=== PATIENT | female | born 1950 | race African-American/Black ===

== ENCOUNTER → 2020-04-29 | Day surgery (SDC) | payer OTHER ==
--- OUTSIDE RECORDS SUMMARY | 2020-04-29 10:15 | XMS REPORT | Summary of Care ---
:1950 Author Organization [facility] [place] Address [address] [place] [address]- phone Encounter HQ Encntr_alias(FIN) [id number] Date(s): 01/30/20 - 01/30/20 [facility] [address] [place] [address]- [phone] Attending Physician: Won Maciel MD Referring Physician: Won Maciel MD Vital Signs No data available for this section Problem List Condition Effective Dates Status Health Status Informant Headache(Confirmed) Active Rheumatoid arthritis(Confirmed) Active Tinnitus(Confirmed) Active Allergies, Adverse Reactions, Alerts No Known Medication Allergies Medications No data available for this section Results No data available for this section Immunizations No data available for this section Procedures No data available for this section Social History Social History Type Response Smoking Status Current every day smoker; Ty pe: Cigarettes; Exposure to Tobacco Smoke Unable to obtain; Cigarette Smoking Last 365 Days Yes; Reg Smoking Cessation Counseling No entered on: 12/19/19 Assessment and Plan No data available for this section
--- OUTSIDE RECORDS SUMMARY | 2020-04-29 10:15 | XMS REPORT | Continuity of Care Document ---
:1950 Author Organization [employer] [facility] Care Team Providers Name Role Phone [employer] [facility] Unavailable Un available Problems Problem Status Onset Classification Date Comments Sourc e Date Reported HEADACHE Active [address] TEMPORAL Active [address] Z78.0 - Active [facility] ASYMPTOMATIC 5 Sugar L and MENOPAUSAL STATE Headache Active Problem 02/01/2020 [facility] (finding) Neuro Rheumatoid Active Problem 02/01/2020 [facility] arthritis Neuro (disorder) Tinnitus Active Problem 02/01/2020 [facility] (finding) Neuro OTHER GIANT CELL Active [facility] Medications Medication Details Route Status Patient Ordering Order Source Instructions Provider Date 0.8 ML 50 mg = 1 ml, Active [facility] adalimumab 50 SUB-Q, Q14D, 020 Neuro MG/ML # 1 kit, 0 Auto-Injector Refill(s) [Humira] lisinopril 20 20 mg = 1 Active [facility] mg oral tablet tab, PO, 019 Medical Daily, # 30 Center tab, 3 Refill(s) Lisinopril Notes: (Same [place]: Prinivil, 019 Medical Zestril) [place] 0.8 ML 40 mg = 0.8 Active [facility] adalimumab 50 ml, SUB-Q, 019 Medical MG/ML Prefilled Q14D, # 1 Center Syringe kit, 0 [Humira] Refill(s) Folic Acid 1 MG 1 mg = 1 tab, Active [place] Oral Tablet PO, Daily, 0 019 Medical Refill(s) [place] gabapentin 100 200 mg = 2 Active [facility] as MG Oral Capsule cap, PO, TID, 019 Me dical 0 Refill(s) [place] methotrexate 12.5 mg = 5 [place] 2.5 mg oral tab, PO, 019 Medical tablet qWeek, ON Center MONDAY, 0 Refill(s) Magnesium Notes: [place]: [place] Sulfate F/P - Sink; E [address] [place] [address] Trash Bin Magnesium Notes: [place]: [place] Sulfate F/P - Sink; E [address] [place] [address] Trash Bin Saline Flush Notes: (Same No Longer [place] 0.9% as: BD Active 019 Medical Posiflush) Center Lisinopril Notes: (Same No Longer [place] as: Prinivil, Active [address] [place] [address] Zestril) Center Docusate Sodium Notes: (Same No Longer [facility] [place] 50 MG / as Senokot-S) Active [address] [place] [address] sennosides, SHELTER Equiv. to Cente r 8.6 MG Oral Galilea-Colace. Tablet Famotidine Notes: (Same No Longer [place] as: Pepcid) Active [address] [place] [address] chlorhexidine Notes: (Same No Longer [facility] gluconate 1.2 As: Peridex) Active [facility] Medic al MG/ML Mouthwash Center Saline Flush Notes: (Same No Longer [place] 0.9% as: BD Active 019 Medical Posiflush) Center Hydralazine Notes: (Same [place] Long[place] as: Active 019 [facility] Apresoline) Center Push over 5 minutes Saline Flush Notes: (Same No Longer [place] 0.9% as: BD Active 019 Medical Posiflush) Center heparin Notes: No Longer [facility] porcine Active [address] [place] [address] heparin Center Insulin regular Notes: (Same No Longer [facility] [place] as: Humulin Active 019 Medical R) Roll in Center palms of hands gently; Do not shake vigorously. WASTE: F/P - Black; E - Municipal Trash Bin Stable for 31 days at room temperature Expires in days from _Date Saline Flush Notes: (Same No Longer [place] 0.9% as: BD Active 019 Medical Posiflush) Center PHOS-NaK Notes: (Same No Longer [facility] as: Phos-NaK) Active 019 Medical Each 1.5 gm Center pkt has 250mg phosphorous. Mix w/2.5oz water and stir. Proparacaine 1 drp, Route: Inactive [place] hydrochloride 5 RIGHT EYE, 019 Medic al MG/ML ONCE, Drug Center Ophthalmic form: SOLN, Solution Priority: STAT, Start date: 09/11/18 16:09:00 CDT, Stop date: 09/11/18 16:09:00 CDT fluorescein 1 mL, Route: Inactive [place] ophthalmic 1 mg OPTH, ONCE, 019 Medi prasad test Start date: Center 09/11/18 16:09:00 CDT, Stop date: 09/11/18 16:09:00 CDT Allergies, Adverse Reactions, Alerts Substance Category Reaction Severity Reaction Status Date Comments S ource type Reported No Known Assertion Drug Misch er Medication allergy Neuro Allergies Immunizations No Data Provided for This Section Results Order Name Results Value Reference Date Interpretation Comments Maria Del Rosario rce Range CHEM PANEL Phosphorus 2.6 2.5 - 4.5 09/13 [facility] CHEM PANEL Magnesium Lvl 2.4 1.8 - 2.4 09/13 [facility] CHEM PANEL eGFR 80 09/13 Result Comment: [facility] eGFR is Center calculated using the CKD-EPI formula. In most young, healthy individuals the eGFR will be >90 mL/min/1.73m2 . The eGFR declines with age. An eGFR of 60-89 may be normal in some populations, particularly the elderly, for whom the CKD-EPI formula has not been extensively validated. Use of the eGFR is not recommended in the following populations:< br/>
Ayana viduals with unstable creatinine concentration s, including patients and those with serious co-morbid conditions.<b r/>
Patie nts with extremes in muscle mass or diet.

The data above are obtained from the National Kidney Disease Education Program (NKDEP) which additionally recommends that when the eGFR is used in patients with extremes of body mass index for purposes of drug dosing, the eGFR should be multiplied by the estimated BMI. CHEM PANEL Potassium Lvl 3.7 3.5 - 5.1 09/13 [facility] [place] [facility] CHEM PANEL Calcium Lvl 10.0 8.5 - 10.5 09/13 [place] [facility] CHEM PANEL AGAP 6.7 10.0 - 09/13 [place] 20.0 [facility] CHEM PANEL CO2 27 24 - 32 09/13 [facility]2018 [facility] CHEM PANEL Chloride Lvl 109 95 - 109 09/13 [place] [facility] CHEM PANEL Creatinine Lvl 0.87 0.50 - 09/13 [place] 1.40 [facility] CHEM PANEL BUN 11 7 - 22 09/13 [facility]2018 [facility] CHEM PANEL Sodium Lvl 139 135 - 145 09/13 [facility]2018 [facility] CHEM PANEL Glucose Lvl 91 70 - 99 09/13 [facility]2018 [facility] ANEMIA STUDY Vitamin B12 1122 254 - 1320 09/12 [place] Lvl [facility] ANEMIA STUDY Folate Lvl 9.2 >=3.0 09/12 [facility] ng/mL [facility] CARDIAC Troponin-I <0.02 0.00 - 09/11 [facility] ENZYMES 0.40 [facility] CHEM PANEL Procalcitonin 0.07 0.00 - 09/11 [place] L[place] 0.10 [facility] CHEM PANEL Lactic Acid 1.1 0.5 - 2.2 09/11 [place] [facility] CHEM PANEL Phosphorus 2.3 2.5 - 4.5 09/11 [facility]2018 [facility] CHEM PANEL Magnesium Lvl 2.2 1.8 - 2.4 09/11 [facility] ELECTROLYTES AGAP 11.7 10.0 - 09/11 [place] 20.0 [facility] ELECTROLYTES eGFR 67 09/11 [facility] Comment: The Medical eGFR is Center calculated using the CKD-EPI formula. In most young, healthy individuals the eGFR will be >90 mL/min/1.73m2 . The eGFR declines with age. An eGFR of 60-89 may be normal in some populations, particularly the elderly, for whom the CKD-EPI formula has not been extensively validated. Use of the eGFR is not recommended in the following populations:< br/>
Ayana viduals with unstable creatinine concentration s, including patients and those with serious co-morbid conditions.<b r/>
Patie nts with extremes in muscle mass or diet.

The data above are obtained from the National Kidney Disease Education Program (NKDEP) which additionally recommends that when the eGFR is used in patients with extremes of body mass index for purposes of drug dosing, the eGFR should be multiplied by the estimated BMI. ELECTROLYTES Creatinine Lvl 1.00 0.50 - 09/11 [facility] 1.40 [facility] ELECTROLYTES Potassium Lvl 3.7 3.5 - 5.1 09/11 [facility]2018 [facility] ELECTROLYTES Sodium Lvl 143 135 - 145 09/11 [facility] ELECTROLYTES Calcium Lvl 10.0 8.5 - 10.5 09/11 [facility] ELECTROLYTES Chloride Lvl 109 95 - 109 09/11 [facility] ELECTROLYTES CO2 26 24 - 32 09/[address] ELECTROLYTES Glucose Lvl 92 70 - 99 09/11 [facility] ELECTROLYTES BUN 11 7 - 22 09/11 [facility]2018 [facility] HEMATOLOGY Sed Rate 46 0 - 20 09/11 [facility]2018 [facility] HEMATOLOGY INR 1.01 0.85 - 09/11 [facility] 1.17 [facility] HEMATOLOGY PT 13.1 12.0 - 09/11 [facility] 14.7 [facility] HEMATOLOGY PTT 33.5 22.9 - 09/11 [facility] 35.8 [facility] HEMATOLOGY Neutrophils # 2.1 1.5 - 8.1 09/11 [facility]2018 [facility] HEMATOLOGY Monocytes # 0.5 0.0 - 0.8 09/11 [facility] HEMATOLOGY Lymphocytes # 2.2 1.0 - 5.5 09/11 [facility]2018 [facility] HEMATOLOGY Eosinophils # 0.3 0.0 - 0.5 09/11 [facility]2018 [facility] HEMATOLOGY Basophils # 0.1 0.0 - 0.2 09/11 [facility]2018 [facility] HEMATOLOGY Segs 39.8 45.0 - 09/11 [facility] 75.0 [facility] HEMATOLOGY Lymphocytes 43.0 20.0 - 09/11 [facility] 40.0 [facility] HEMATOLOGY Eosinophils 5.5 0.0 - 4.0 09/11 [facility] HEMATOLOGY Monocytes 10.6 2.0 - 12.0 09/11 [facility] HEMATOLOGY Basophils 1.1 0.0 - 1.0 09/11 [facility] HEMATOLOGY MCV 89.4 80.0 - 09/11 [place] 98.0 [facility] HEMATOLOGY MCHC 32.3 32.0 - 09/11 [place] 36.0 [facility] HEMATOLOGY Platelet 241 133 - 450 09/11 [facility] HEMATOLOGY RDW 14.3 11.5 - 09/11 [place] 14.5 [facility] HEMATOLOGY MPV 9.6 7.4 - 10.4 09/11 [facility] HEMATOLOGY MCH 28.9 27.0 - 09/11 [facility] 31.0 [facility] HEMATOLOGY RBC 3.78 4.20 - 09/11 [facility] 5.40 /2018 [facility] HEMATOLOGY WBC 5.2 3.7 - 10.4 09/11 [facility] HEMATOLOGY Hgb 10.9 12.0 - 09/11 [facility] 16.0 [facility] HEMATOLOGY Hct 33.8 36.0 - 09/11 [facility] 48.0 [facility] IMMUNOLOGY C-REACTIVE 23.1 <=2.9 mg/L 09/11 [place] PROTEIN [facility] Pathology Reports No Data Provided for This Section Diagnostic Reports Report Value Date Source Brain w/wo contrast EXAM: MRI BRAIN WITH AND WITHOUT CONTRAST [facility] MRI EXAM: MR ANGIOGRAPHY BRAIN WITHOUT CONTRAST Center EXAM: MR ANGIOGRAPHY NECK WITH AND WITHOUT CONTR AST DATE: 09/11/2018 INDICATION: '- R-sided ptosi s, changes in vision, forehead involving droop, eval for optic neuritis vs cva vs GCA' COMPARISON: Noncontrast head CT earlier the same date TECHNIQUE: - Multiplanar, multisequence pre and postcontras t MRI images of the brain. - Three-dimensional time of flight brain MR angiography of intracranial vessels is performed, and maximum intensity projection reformatted images are presented in multiple three-dimensional rotational projections. - Two-dimensional time of fl ight neck MR angiography of extracranial arterial system was performed and reformatted images are presented in three-dimensional maximum intensity rotational projections. Thr ee-dimensional [id number] t MR angiography centered at the carotid bifurcations was included. Postcontrast time resolved MRA of the neck was also obtained. IV contrast: 14 mL MultiHance FINDINGS: BRAIN MRI: Diffusion-weighted images an d correlative maps of apparent diffusion coefficient demonstrate no acute ischemic changes. Gradient echo images demonstrate no acute or chr onic hemorrhagic change. Periventricular T2 and FLAIR hyperintense white matter changes are nonspecific but most likely represents moderate chronic microvascular ischemic changes. Mucosal thickening and scattered secretions res hussain within the right anterior ethmoid and fronta l sinuses. BRAIN MRA: There is no intracranial modesto nosis, occlusion, or vascular malformation. Tiny inferolaterally projecting tapered outpouching arises from the left internal carotid artery cavernous segment likely represents an infundibulum of the inferolateral trunk. NECK MRA: No flow-limiting stenosis of the common carotid, internal carotid, or vertebral arteries is detected. Multinodular thyroid, likely goiter. Obscured left axillary artery is indeterminate and may be artifactual. IMPRESSION: 1. No acute intracranial ab normality on pre and postcontrast MRI brain, specifically no ischemic infarction or pathologic enhancement. Moderate chronic microvascular ischemic changes. 2. Unremarkable pre and postcontrast MRI of the orbits. 3. Unremarkable angiographi c evaluation on MRA head and neck, with no stenosis or occlusion. 4. Obscured left axillary artery is indetermina te and may be artifactual. 5. Multinodular enlarged th yroid is partially imaged, and further evaluation with dedicated ultrasound can be considered. Brain wo contrast MRA EXAM: MRI BRAIN WITH AND WITHOUT CONTRAST 09/11/2018 [facility] EXAM: MR ANGIOGRAPHY BRAIN WITHOUT CONTRAST Center EXAM: MR ANGIOGRAPHY NECK WITH AND WITHOUT CONTR AST DATE: 09/11/2018 INDICATION: '- R-sided ptosi s, changes in vision, forehead involving droop, eval for optic neuritis vs cva vs GCA' COMPARISON: Noncontrast head CT earlier the same date TECHNIQUE: - Multiplanar, multisequence pre and postcontras t MRI images of the brain. - Three-dimensional time of flight brain MR angiography of intracranial vessels is performed, and maximum intensity projection reformatted images are presented in multiple three-dimensional rotational projections. - Two-dimensional time of fl ight neck MR angiography of extracranial arterial system was performed and reformatted images are presented in three-dimensional maximum intensity rotational projections. Thr ee-dimensional [id number] t MR angiography centered at the carotid bifurcations was included. Postcontrast time resolved MRA of the neck was also obtained. IV contrast: 14 mL MultiHance FINDINGS: BRAIN MRI: Diffusion-weighted images an d correlative maps of apparent diffusion coefficient demonstrate no acute ischemic changes. Gradient echo images demonstrate no acute or chr onic hemorrhagic change. Periventricular T2 and FLAIR hyperintense white matter changes are nonspecific but most likely represents moderate chronic microvascular ischemic changes. Mucosal thickening and scattered secretions res hussain within the right anterior ethmoid and fronta l sinuses. BRAIN MRA: There is no intracranial modesto nosis, occlusion, or vascular malformation. Tiny inferolaterally projecting tapered outpouching arises from the left internal carotid artery cavernous segment likely represents an infundibulum of the inferolateral trunk. NECK MRA: No flow-limiting stenosis of the common carotid, internal carotid, or vertebral arteries is detected. Multinodular thyroid, likely goiter. Obscured left axillary artery is indeterminate and may be artifactual. IMPRESSION: 1. No acute intracranial ab normality on pre and postcontrast MRI brain, specifically no ischemic infarction or pathologic enhancement. Moderate chronic microvascular ischemic changes. 2. Unremarkable pre and postcontrast MRI of the orbits. 3. Unremarkable angiographi c evaluation on MRA head and neck, with no stenosis or occlusion. 4. Obscured left axillary artery is indetermina te and may be artifactual. 5. Multinodular enlarged th yroid is partially imaged, and further evaluation with dedicated ultrasound can be considered. Orbit w/wo contrast EXAM: MRI ORBITS WITH AND WITHOUT CONTRAST 0 09/11/2018 [facility] MRI DATE: 09/12/2018 Center INDICATION: ' - R-sided ptos is, changes in vision, forehead involving droop, eval for optic neuritis vs cva vs GCA' ADDITIONAL INFORMATION: None COMPARISON: Concurrent MRI brain TECHNIQUE: Multiplanar, mult isequence MRI of the orbits with and without contrast. IV contrast: 14 mL MultiHance FINDINGS: Mild motion degradation. The optic nerves are symmetr ic and normal in size and signal. The pre and post septal orbital fat is preserved, with no stranding or effacement. There is no intraorbital mass lesion or mass effect. The superior ophthalmic vein is normal. The extraocular muscles are normal in size and signal. Both globes and lenses are unremarkable. The lacrimal glands are normal. The sella and pituitary glan d are normal. The infundibulum is midline. Both cavernous sinuses and Meckel's caves are symmetric with no abnormal signal. Secretions and mucosal thick ening of the right frontal and anterior ethmoid sinuses. The paranasal soft tissues are normal. IMPRESSION: Normal MRI of the orbits with and without contra st. Neck w/wo contrast EXAM: MRI BRAIN WITH AND WITHOUT CONTRAST [facility] MRA EXAM: MR ANGIOGRAPHY BRAIN WITHOUT CONTRAST Center EXAM: MR ANGIOGRAPHY NECK WITH AND WITHOUT CONTR AST DATE: 09/11/2018 INDICATION: '- R-sided ptosi s, changes in vision, forehead involving droop, eval for optic neuritis vs cva vs GCA' COMPARISON: Noncontrast head CT earlier the same date TECHNIQUE: - Multiplanar, multisequence pre and postcontras t MRI images of the brain. - Three-dimensional time of flight brain MR angiography of intracranial vessels is performed, and maximum intensity projection reformatted images are presented in multiple three-dimensional rotational projections. - Two-dimensional time of fl ight neck MR angiography of extracranial arterial system was performed and reformatted images are presented in three-dimensional maximum intensity rotational projections. Thr ee-dimensional sgxz-[id number] t MR angiography centered at the carotid bifurcations was included. Postcontrast time resolved MRA of the neck was also obtained. IV contrast: 14 mL MultiHance FINDINGS: BRAIN MRI: Diffusion-weighted images an d correlative maps of apparent diffusion coefficient demonstrate no acute ischemic changes. Gradient echo images demonstrate no acute or chr onic hemorrhagic change. Periventricular T2 and FLAIR hyperintense white matter changes are nonspecific but most likely represents moderate chronic microvascular ischemic changes. Mucosal thickening and scattered secretions res hussain within the right anterior ethmoid and fronta l sinuses. BRAIN MRA: There is no intracranial modesto nosis, occlusion, or vascular malformation. Tiny inferolaterally projecting tapered outpouching arises from the left internal carotid artery cavernous segment likely represents an infundibulum of the inferolateral trunk. NECK MRA: No flow-limiting stenosis of the common carotid, internal carotid, or vertebral arteries is detected. Multinodular thyroid, likely goiter. Obscured left axillary artery is indeterminate and may be artifactual. IMPRESSION: 1. No acute intracranial ab normality on pre and postcontrast MRI brain, specifically no ischemic infarction or pathologic enhancement. Moderate chronic microvascular ischemic changes. 2. Unremarkable pre and postcontrast MRI of the orbits. 3. Unremarkable angiographi c evaluation on MRA head and neck, with no stenosis or occlusion. 4. Obscured left axillary artery is indetermina te and may be artifactual. 5. Multinodular enlarged th yroid is partially imaged, and further evaluation with dedicated ultrasound can be considered. Chest 2 views DX EXAM: XR CHEST 2 VIEWS 09/11/2018 [facility] DATE: 09/11/2018 17:02 CDT Center INDICATION: - bradycardia with 'chest tightness ' lifetime tobacco dependency COMPARISON: None. TECHNIQUE: Frontal and lateral views of the ches t FINDINGS: Lines, tubes and hardware: None. Lungs and pleura: The lungs are well expanded with postsurgical changes and sutures of the left upper lung with expected volume loss and numerous linear densities within the left lung base. Small left pleural effusion. No pneumothorax. Heart and mediastinum: The c ardiomediastinal silhouette is normal. The pulmonary vascularity is symmetric and normal in size. Tortuosity of the thoracic aorta with atherosclerotic vascular cast dislocations. Upper abdomen: The included upper abdomen is unr emarkable. Bones and soft tissues: The bones and soft tissues reveal resection of the left posterior lateral 7th rib. IMPRESSION: Postsurgical volume loss of the left hemithorax with subsegmental atelectasis versus scarring of the left lung base and small left pleural effusion. Brain-Outside Consult EXAM: CT BRAIN WITHOUT CONTRAST-- OUTS HUSSAIN CONSULT 09/11/2018 [facility] CT DATE: 09/11/2018 Center INDICATION: ' - OUTSIDE STUD Y/ VISION CHANGE OR LOSS'; transferred for higher level of care, request for second interpretation of outside imaging. ADDITIONAL INFORMATION: 'Right eye vision loss C [facility] vs 'giant cell arteritis' COMPARISON: None TECHNIQUE: Noncontrast axial imaging of the brain was acquired from the vertex to the skull base. 32 images. Imaging was performed at [facility] on 09/11/2018. FINDINGS: There is no intracranial hemorrhage or extra-axi al collection. No parenchymal density abnor mality to suggest acute ischemic infarction. Patchy periventricular subcortical hypoattenuation is nonspecific but most likely represents chronic microvascular ischemic changes. No mass or mass effect. The ventricles are normal in caliber and configu ration. The density of the larger intracranial sinuses i s normal. The skull base and calvarium are normal. The right frontal sinus is partially opacified. IMPRESSION: 1. No acute intracranial abnormality. 2. Chronic microvascular ischemic changes. 3. Partial right frontal si nus opacification, which can represent sinusitis in the appropriate clinical setting. Bone Density DXA Dual - Bone Density DXA [employer] MA 07/06/19 16 MH OPID [employer] MA BONE DENSITY EVALUATION: 07/06/2015 CLINICAL DATA: Post menopausal and clinical risk for osteoporosis. FINDINGS: Bone density evaluation was performed 07/06/2015 on the AP L1-L4 region of spine using [employer] X-Ray Absorptiometry. The BMD average for the exam is 0.957 g/cm2. The T-score is -1.90 and the Z-score is -1.20. This matc hes the World Health Organization's criteria for osteopenia and places the patient at a medium risk for fracture. An additional bone density e valuation was performed 07/06/2015 on the right femur neck using [employer] X-Ray Absorptiometry. The BMD average for the exam is 0.823 g/cm2. The T-score is -1.50 an d the Z-score is -1.10. Thi s matches the World Health Organization's criteria for osteopenia and places the patient at a medium risk for fracture. An additional bone density e valuation was performed 07/06/2015 on the left femur neck using [employer] X-Ray Absorptiometry. The BMD average for the exam is 0.857 g/cm2. The T-score is -1.30 and the Z-score is -0.80. This matches the World Health Organization's criteria for osteopenia and places the patient at a medium risk for fracture. IMPRESSION: OSTEOPENIA Patient is at medium risk for fracture. This exam was dictated and i nterpreted by [id number] at [facility]. Mally Tadeo M.D., ms/manny:07/06/2015 13:37:28 Door Serviceman: Edwin WINKLER)([place]), [facility] Outpatient Imaging Consultation Notes No Data Provided for This Section Discharge Summaries No Data Provided for This Section History and Physicals No Data Provided for This Section Vital Signs Vital Sign Value Date Comments Source Systolic (mm Hg) 160 12/19/2019 [facility] Diastolic (mm Hg) 100 12/19/2019 [facility] Ne uro Heart Rate 54 12/19/2019 [facility] Neuro Respitory Rate 16 12/19/2019 [facility] Neuro Height 165.1 cm 12/19/2019 [facility] Neuro Weight 77.273 12/19/2019 [facility] Neuro BMI Calculated 28.35 12/19/2019 [facility] [place] [facility] Respitory Rate 20 09/13/2018 [facility] Systolic (mm Hg) 129 09/13/2018 [facility] Diastolic (mm Hg) 91 09/13/2018 [facility] Temperature Oral (F) 97.9 F 09/13/2018 [facility] Systolic (mm Hg) 143 09/13/2018 [facility] Diastolic (mm Hg) 96 09/13/2018 [facility] Respitory Rate 20 09/13/2018 [facility] Systolic (mm Hg) 152 09/13/2018 [facility] Diastolic (mm Hg) 69 09/13/2018 [facility] Respitory Rate 26 09/13/2018 [facility] Temperature Oral (F) 97.4 F 09/13/2018 [facility] Temperature Oral (F) 99.0 F 09/13/2018 [facility] BMI Calculated 26.73 09/12/2018 [facility] Weight 72.864 09/12/2018 [facility] Height 165.1 cm 09/12/2018 [facility] Height 165.1 cm 09/11/2018 [facility] Heart Rate 44 09/11/2018 [facility] BMI Calculated 26.68 09/11/2018 [facility] Weight 72.727 09/11/2018 [facility] Encounters Location Location Encounter Encounter Reason Attending ADM [place] Stat us Source Details Type Number For Provider Date Date Visit [facility] Outpt Diag [id number] Earl 07/06 07/07 Roc [facility] 0 [facility] [place] [facility] Observation [id number] Adriel 09/11 09/13 [facility] [place] 0 [facility] Outpatient [id number] Won 12/18 [facility] [place] [facility] [id number] Won 12/18 [facility] [place] [facility] [id number] Won 12/18 [facility] [place] Outpatient [id number] Won 12/18 [facility] [place] [facility] [id number] Won 12/18 12/18 [facility] [place] [facility] Out[facility] [id number] Won 12/18 12/19 [facility] [place] [facility] [id number] Won 12/18 12/18 [facility] 0 [facility] [place] [facility] [id number] Won 12/18 12/18 [facility] 2 [facility] [place] Outpatient [id number] Won 01/29 [facility] [place] [facility] [id number] Won 01/29 01/29 [facility] 4 [facility] [place] Procedures No Data Provided for This Section Assessment and Plan Assessment and Plan Date Source Extracted from:Title: Neurology Discharge Summary 09/13/2018 [facility] Author: Adriel Ac MD Date: 09/13/18 INPATIENT NEUROLOGY DISCHARGE SUMMARY Patient Name: Leo Mayo Date of Admission: 09/11/18 Date of Discharge: 09/13/18 Admission Diagnosis: Headache Discharge Diagnoses: Headache Consults Obtained: Opthalmology Brief HPI: Leo Mayo is a 67 year old female with rheumatoid arthritis, on Humira, who presents as a tranfer for 5 days of eye pain + blurry vision. She states that her eye pain started 5 days ago as periorb ital and temporal, and has been tender t o palpation. She endorses occasional sharp shooting pain from around her temporal area and eye lasting a few seconds that is severe and happening a few times/day since this started. She endorses eye karan ering but no red eyes, as well as blurry vision in the right eye but no darkened vision or lack of vision. She does endorse some pain with moving the eyes but sta allen it is not severe. She also endorses right ear pain and a pressure like sensation. She denies fever, rhinorrhea, sore throat, nausea, or vomiting. She does endorse jaw claudication.She went to an [facility] ER this AM for the chief complaint of right foot pain, but upon mentioning her eye pain had ESR/CRP drawn as well as CT brain. Outside ESR was 64 so the patient received IV methylprednisolone at 1 3:00 09/11, and was transferred here to [facility] seen by neurology and ophthalmology. She does endorse numbness in bilateral fingertips for the past week, as well as light headedness upon standing that resolves after a few seconds. Hospital Course: The patient was admitted for headaches w ith initial concern by the outside hospital for temporal arteritis. As the patiet's clinical picture was inconsistent with this, we sought other sources for her new onset headache. MRI was done whi ch was unrevealing, and the pain was improved by magnesium, however the pain could not be distinguished to a specific etiology and is likely due to TMJ vs Migrain e vs Tension Headache. The patient was a dvised to follow up with a dentis, decrease frequency of gum chewing, and to use a mouthguard at night to help impove symptoms, and to take tylenol as needed to c ontrol the pain. On 09/13 patient neurolo gical exam stable and patient deemed to be good candidate for discharge to home. Our work up was as follows: Outside Labs: ESR 64 In house labs: BMP WNL Lactic acid - 1.1 Procal 0.07 Trop <0.02 CBC: WNL except for Normocytic anemia, Hemoglobin 10.9 ESR 46 Coags WNL CRP 23.1 MRI Brain w/wo WNL Discharge Physical Examination: Vitals Tmp(F) Tmp(C) Ttype BP MAP Pulse RR 09/13 09:14 97.9 36.61 oral ----- --- --- -- --- --- 09/13 08:30 ---- ---- ---- 143/96 115 58 20 100 --- 09/13 04:30 ---- ---- ---- 152/69 99 55 26 100 --- 09/13 03:31 97.4 36.33 oral ----- --- --- -- --- --- 09/13 02:00 ---- ---- ---- 150/101 121 55 26 100 --- GENERAL: Awake, alert in NAD HEENT: - Normocephalic and atraumatic, d ry mm. Endorses TTP in right cheek and right temporalis muscl, sclera not injected LUNGS - Clear to auscultation bilaterally with no wheezes CV - S1S2 RRR ABDOMEN - Soft, nontender, nondistended with normoactive BS NEURO: Mental Status: AA&Ox3 Language: speech is fluent. Naming, rep etition, fluency, and comprehension intact. Cranial Nerves: No ptosis. PERRL 3mm/shonna sk. EOMI, visual potts full, denies blurry vision in right eye, no facial asymmetry, facial sensation intact, hearing intact, tongue/uvula/soft palate midline, n ormal sternocleidomastoid and trapezius muscle strength. No evidence of tongue atrophy or fibrillations Motor: RUE 5/5 RLE 5/5 LUE 5/5 LLE 5/5 Tone: is normal and bulk is normal Sensation- Intact to light touch bilaterally in upper and lo wer extremities. Coordination: FTN intact bilaterally, no ataxia in BLE. Gait-normal station and gait Final Diagnosis: Headache Discharge Medications: See HMR for full list of medications. Patient is provided with this list at discharge. Discharge Diet: Regular Follow up and Important Plans for Future Care: [facility] up [facility]. Please call . Clinic located at [address] [place] [address], [address] [place] [address]. PCP follow-up within 2 weeks Discharge Instructions: Continue to take all medications as prescribed and make and keep all follow up appointments. We advised you to decrease the frequency of your gum chewing, to try using a generic mouthguard while sleeping, and to consul t a dentist if your pain persists as it is likely TMJ pain. Discharge To Location: Home Please call our nurse coordinator at if you have any questions/concerns. Thank you, [facility] Plan of Care No Data Provided for This Section Social History Social History Date Source Social History TypeResponse 12/19/2019 [facility] Smoking Status Current every day smoker; Type: Cigarett es; Exposure to Tobacco Smoke Unable to obtain; Cigarette Smoking Last 365 Days Yes; Reg Smoking Cessation Counseling No entered on: 12/19/19 Social History TypeResponse 09/12/2018 [facility] Smoking Status Former smoker; Exposure to Tobacco Smoke None; Exposed at work; Cigarette Smoking Last 365 Days No; Reg Smoking Cessation Counseling No entered on: 09/11/18 No data available for this 07/07/2015 [facility] [place] section Family History No Data Provided for This Section Advance Directives No Data Provided for This Section Functional Status No Data Provided for This Section
--- OUTSIDE RECORDS SUMMARY | 2020-04-29 10:16 | XMS REPORT | Continuity of Care Document ---
:1950 Author Organization [facility] t Address [address] [place] [address] Care Team Providers Name Role Phone Farrukh Maciel Attending Clinician Edgar SESAY Attending Clinician Kit Ac Attending Clinician Christos Attending Clinician Kit Ac Admitting Clinician Problems Condition Condition Condition Status Onset Resolution Last Treating Co mments Source Name Details Category Date Date Treatment Clinician Date HEADACHE Diagnosis Active 2018-09-11 M emoria 4-16 20:54:00 l HEADACHE 00:00: Robby n 00 Active 09/11/2018 [facility] TEMPORAL Diagnosis Active 2019-09-11 M emoria ARTERITIS 4-16 14:45:00 l TEMPORAL 00:00: Robby n ARTERITIS 00 Active 09/11/2018 [facility] Z78.0 - Diagnosis Active 2014-052015-07-06 Me moria ASYMPTOMAT 2-08 10:51:00 l IC Z78.0 - 00:01: [place] MENOPAUSAL ASYMPTOMAT 00 STATE IC MENOPAUSAL STATE Active 05/05/2015 [facility] [place] Headache Problem Active 2020-02-01 Mem [facility] (finding) 21:24:58 l Headache Robby n (finding) Active Problem 02/01/2020 [facility] Rheumatoid Problem Active 2020-02-01 M emoria arthritis 21:24:58 l (disorder) Robby canales Rheumatoid arthritis (disorder) Active Problem 02/01/2020 [facility] Tinnitus Problem Active 2020-02-01 Mem oria (finding) 21:24:58 l Tinnitus Robby n (finding) Active Problem 02/01/2020 [facility] OTHER Diagnosis Active 2019-09-11 Mem [facility] GIANT CELL 14:45:00 l ARTERITIS OTHER Robby n GIANT CELL ARTERITIS Active [facility] Allergies, Adverse Reactions, Alerts Allergy Allergy Status Severity Reaction(s) Onset Inactive Treating Comm ents Source Name Type Date Date Clinician No Known No Known Active Memori a Medicati Medicati l on on [place] Allergie Allergie s s Social History Social Habit Start Date Stop Date Quantity Comments Source Social History 2015-07-07 2015-07-07 [facility] mary 05:59:00 05:59:00 Smoking Status Start Date Stop Date Source Social History 2019-12-19 14:54:47 [facility] haq Social History 2018-09-12 04:45:40 2018-09-12 04:45:40 [facility] Medications Ordered Filled Start Stop Current Ordering Indication Dosage Frequency Signature Comments Components Source Medication Medication Date Date Medication? Clinician (SIG) Name Name 0.8 ML Yes 50 mg = 1 Memori a adalimumab 7-23 ml, SUB-Q, l 50 MG/ML 15:22: Q14D, # 1 Herm liz Auto-Inject 00 kit, 0 or [Humira] Refill(s) lisinopril Yes 20 mg = 1 Me moria 20 mg oral 4-18 tab, PO, l tablet 15:23: Daily, # [place] 00 30 tab, 3 Refill(s) Lisinopril No Notes: Memor ia 4-17 (Same as: l 19:46: Prinivil, [place] 00 Zestril) 0.8 ML Yes 40 mg = Memoria adalimumab 4-17 0.8 ml, l 50 MG/ML 19:11: SUB-Q, [place] Prefilled 00 Q14D, # 1 Syringe kit, 0 [Humira] Refill(s) Folic Acid 2018- Yes 1 mg = 1 Mem oria 1 MG Oral 4-17 tab, PO, l Tablet 19:11: Daily, 0 [place] 00 Refill(s) gabapentin Yes 200 mg = 2 M emoria 100 MG Oral 4-17 cap, PO, l Capsule 19:11: TID, 0 [place] 00 Refill(s) methotrexat Yes 12.5 mg = M emoria e 2.5 mg 4-17 5 tab, PO, l oral tablet 19:11: qWeek, ON H monday, 0 Refill(s) Magnesium No Notes: Memori a Sulfate 4-17 WASTE: F/P l 19:10: - Sink; E - Municipal Trash Bin Magnesium No Notes: Memori a Sulfate 4-17 WASTE: F/P l 14:54: - Sink; E - Municipal Trash Bin Saline No Notes: Memoria Flush 0.9% 4-17 (Same as: l 14:00: BD Posiflush) Lisinopril No Notes: Memor ia 4-17 (Same as: l 14:00: Prinivil, Zestril) Docusate No Notes: Memoria Sodium 50 4-17 (Same as l MG / 14:00: Senokot-S) sennosides, 00 Equiv. to [facility]URSING HOME 8.6 MG [place] Oral Tablet e. Famotidine No Notes: Memor ia 4-17 (Same as: l 14:00: Pepcid) chlorhexidi No Notes: Forrest dilcia ne 4-17 (Same As: l gluconate 05:00: Peridex) Herm liz 1.2 MG/ML 00 Mouthwash Saline No Notes: Memoria Flush 0.9% 4-17 (Same as: l 02:09: BD Posiflush) Hydralazine No Notes: Forrest dilcia 4-17 (Same as: l 02:09: Apresoline ) Push over 5 minutes Saline No Notes: Memoria Flush 0.9% 4-17 (Same as: l 02:00: BD Posiflush) heparin No Notes: Memoria 4-17 porcine l 01:49: heparin Insulin No Notes: Memoria regular 4-17 (Same as: l 01:47: Humulin R) Roll in palms of hands gently; Do not shake vigorously . WASTE: F/P - Black; E - Municipal Trash Bin Stable for 31 days at room temperatur e Expires in days from ____Date Saline 2018- No Notes: Memoria Flush 0.9% -17 (Same as: l 01:47: BD [place] 00 Posiflush) PHOS-NaK No Notes: Memoria 4-17 (Same as: l 01:11: Phos-NaK) [place] 00 Each 1.5 gm pkt has 250mg phosphorou s. Mix w/2.5oz water and stir. Proparacain No 1 drp, Forrest dilcia e 09-11 Route: l hydrochlori 21:09: RIGHT EYE, [place] de 5 MG/ML 00 ONCE, Drug Ophthalmic form: Solution SOLN, Priority: STAT, Start date: 09/11/18 16:09:00 CDT, Stop date: 09/11/18 16:09:00 CDT fluorescein No 1 mL, Memor ia ophthalmic 09-11 Route: l 1 mg test 21:09: OPTH, [place] 00 ONCE, Start date: 09/11/18 16:09:00 CDT, Stop date: 09/11/18 16:09:00 CDT Vital Signs Vital Name Observation Time Observation Value Comments Source Systolic (mm Hg) 2019-12-19 14:41:00 [facility] rial [place] Diastolic (mm Hg) 2019-12-19 14:41:00 [facility] orial [place] Heart Rate 2019-12-19 14:41:00 [facility] [place] Respitory Rate 2019-12-19 14:41:[facility] [place] Height 2019-12-19 14:41:00 165.1 cm [facility] Weight 2019-12-19 14:41:00 [facility] BMI Calculated 2019-12-19 14:41:00 [facility] [place] Respitory Rate 2018-09-13 17:00:00 [facility] [place] Systolic (mm Hg) 2018-09-13 17:00:00 Forrest rial [place] Diastolic (mm Hg) 2018-09-13 17:00:00 [facility] [place] Temperature Oral (F) 2018-09-13 14:14:00 97.9 F [facility] [place] Systolic (mm Hg) 2018-09-13 13:30:00 Forrest rial [place] Diastolic (mm Hg) 2018-09-13 13:30:00 Mem o[facility] [place] Respitory Rate 2018-09-13 13:30:00 [facility] [place] Systolic (mm Hg) 2018-09-13 09:30:00 Forrest rial [place] Diastolic (mm Hg) 2018-09-13 09:30:00 Mem orial [place] Respitory Rate 2018-09-13 09:30:00 [facility] [place] Temperature Oral (F) 2018-09-13 08:31:00 97.4 F [facility] [place] Temperature Oral (F) 2018-09-13 04:22:00 99.0 F [facility] [place] BMI Calculated 2018-09-12 04:48:00 [facility] [place] Weight 2018-09-12 04:48:00 [facility] [place] Height 2018-09-12 04:48:00 165.1 cm [facility] [place] Height 2018-09-11 20:52:00 165.1 cm [facility] [place] Heart Rate 2018-09-11 20:52:00 [facility] [place] BMI Calculated 2018-09-11 20:52:00 [facility] [place] Weight 2018-09-11 20:52:00 [facility] [place] Procedures This patient has no known procedures. Encounters Start End Encounter Admission Attending Care Care Encounter Source Date/Time Date/Time Type Type Clinicians Facility Department ID 2020-01-30 2020-01-30 Outpatient [facility] [id number] 10:45:00 10:45:00 Won 04 Farrukh 2019-12-19 2019-12-19 Outpatient [facility] [id number] 09:30:00 23:59:59 Won 03 Farrukh 2019-12-19 2019-12-19 Outpatient [facility] [id number] 09:30:00 09:30:00 Won 00 Farrukh 2019-12-19 2019-12-19 Outpatient [facility] [id number] 09:30:00 09:30:00 Won 01 Farrukh 2019-12-19 2019-12-19 Outpatient [facility] [id number] 09:30:00 09:30:00 Won 02 Farrukh 2019-12-10 2019-12-10 Office Edgar HIJEAN [id number] 13:09:37 13:53:09 Visit Adriana Trujillo [id number] [id number] [address] 2018-09-11 2018-09-13 Outpatient Smart, [facility] [id number] 15:50:00 12:37:00 Adriel 00 Kit 2018-09-11 2018-09-11 Outpatient E [facility] [id number] [facility] 15:50:00 15:50:00 2015-07-06 2015-07-06 Outpatient med, 29 MH29 [id number] 10:42:00 23:59:00 Fayyaz 00 Results Test Description Test Time Test Comments Results Result Comments Source CHEM PANEL 2018-09-13 2.6 [facility] nn 13:43:00 CHEM PANEL 2018-09-13 2.4 [facility] nn 13:43:00 CHEM PANEL 2018-09-13 80 [facility] nn 13:43:00 CHEM PANEL 2018-09-13 3.7 [facility] nn 13:43:00 CHEM PANEL 2018-09-13 10.0 [facility] nn 13:43:00 CHEM PANEL 2018-09-13 6.7 [facility] nn 13:43:00 CHEM PANEL 2018-09-13 27 [facility] nn 13:43:00 CHEM PANEL 2018-09-13 109 [facility] nn 13:43:00 CHEM PANEL 2018-09-13 0.87 [facility] nn 13:43:00 CHEM PANEL 2018-09-13 11 [facility] nn 13:43:00 CHEM PANEL 2018-09-13 139 [facility] nn 13:43:00 CHEM PANEL 2018-09-13 91 [facility] nn 13:43:00 ANEMIA STUDY 2018-09-12 [id number] [facility] Her haq 20:17:00 ANEMIA STUDY 2018-09-12 9.2 [facility] Her haq 20:17:00 CARDIAC ENZYMES 2018-09-11 <0.02 [facility] [place] 22:32:00 CHEM PANEL 2018-09-11 0.07 [facility] Diane nn 22:32:00 CHEM PANEL 2018-09-11 1.1 [facility] nn 22:32:00 CHEM PANEL 2018-09-11 2.3 [facility] nn 22:32:00 CHEM PANEL 2018-09-11 2.2 [facility] nn 22:32:00 ELECTROLYTES 2018-09-11 11.7 [facility] Her haq 22:32:00 ELECTROLYTES 2018-09-11 67 [facility] haq 22:32:00 ELECTROLYTES 2018-09-11 1.00 [facility] Her haq 22:32:00 ELECTROLYTES 2018-09-11 3.7 [facility] haq 22:32:00 ELECTROLYTES 2018-09-11 143 [facility] haq 22:32:00 ELECTROLYTES 2018-09-11 10.0 [facility] haq 22:32:00 ELECTROLYTES 2018-09-11 109 [facility] haq 22:32:00 ELECTROLYTES 2018-09-11 26 [facility] Her haq 22:32:00 ELECTROLYTES 2018-09-11 92 [facility] Her haq 22:32:00 ELECTROLYTES 2018-09-11 11 [facility] Her haq 22:32:00 HEMATOLOGY 2018-09-11 46 [facility] Diane nn 22:32:00 HEMATOLOGY 2018-09-11 22:32:00 Test Item Value Reference Range Interpretation Comme nts INR (test code = INR) 1.01 1 0.85-1.17 [facility] [id number] 22:32:00 Test Item Value Reference Range Interpretation Comments PT (test code = PT) 13.1 s 12.0-14.7 [facility] [id number] 22:32:00 Test Item Value Reference Range Interpretation Comments PTT (test code = PTT) 33.5 s 22.9-35.8 [facility] [id number] 22:32:002.1[facility] 2018-09-11 22:32:000.5[facility] IjolztpTFSHRHEHAE6481-79-46 22:32:002.2[facility] MbryaotNIGLQGIOKL9377-31-13 22:32:000.3[facility] NjiqhkiYKDQIPQJXZ7337-25-19 22:32:000.1[facility] AaklzqsFPOSJAEUQC9372-13-04 22:32:0039.8[facility] [place] FYDIMVMTPE7805-45-82 22:32:0043.0[facility] XyyhrthOKDTVEQMXQ4713-49-35 22:32:00 5.5[facility] PzeqobtYWUNHWNCTL5819-62-45 22:32:0010.6[facility]ann[facility]MATOLOGY 2018-09-11 22:32:001.1[facility] TrpcucaEGBVNVRCSZ5838-52-53 22:32:0089.4[facility] TpgfsmpEYDTUPIOTF1491-39-86 22:32:0032.3[facility] TwgsmvlVBYGLHMCNZ3116-25-69 22:32:72326Iyxtntoi YfwdruhVAWDVHQWWA4478-68-40 22:32:0014.3[facility] [place] [id number] 22:32:009.6[facility] DrwbzrhXKSPQTEQBP7131-08-11 22:32:00 Test Item Value Reference Range Interpretation Comments MCH (test code = MCH) 28.9 pg 27.0-31.0 [facility] [id number] 22:32:003.78[facility] HermannHEMATOLOGY 2018-09-11 22:32:005.2[facility] OmjrdtxYPCARRMZDL0337-97-18 22:32:0010.9[facility] UomkfgwDDIFYJMAZX3803-27-89 22:32:0033.8[facility] SjgietxMRDEGROTIZ8910-03-33 22:32:0023.1[facility] [place]
--- NOTE | 2020-04-29 11:15 | RAD REPORT ---
EXAM DESCRIPTION: US - Guided FNA Non Breast - 04/29/2020 10:40 am CLINICAL HISTORY: E04.1 COMPARISON: No comparisons FINDINGS: Preoperative diagnosis: Left thyroid nodule, 4 cm.. Post operative diagnosis: Same. Conscious Sedation: None Fluoroscopy time: None Contrast used: None Estimated blood loss: Minimal Specimens:25 gauge FNA samples x5 The left neck was prepped and draped in the usual sterile fashion. 1% lidocaine was infiltrated into the subcutaneous tissues for local anesthesia. Real time ultrasound scanning of the left neck demonst rated 4 cm nodule. Under ultrasound guidance, using multiple 25 gauge FNA needles, 5 specimens were o btained of this lesion and sent to pathology for evaluation. There were no complications. IMPRESSION: Successful ultrasound-guided left thyroid nodule FNA.
== END ==
LOC: FNA 09:44
PROVIDERS: ATTEND Nurse Practitioner
PROC: 0G9G3ZX Drainage of Left Thyroid Gland Lobe, Percutaneous Approach, Diagnostic (ICD-10-PCS; principal; 2020-04-29)
DX: E04.1 Nontoxic single thyroid nodule (principal)
CPT/HCPCS: 88162